=== PATIENT | male | born 1950 | race Caucasian/White ===

== ENCOUNTER 2020-12-18 12:52 | Emergency (ER) | payer MEDICARE, SELFPAY ==
--- NOTE | ~2020-12-18 | XR_ITS ---
EXAMINATION: XR CHEST CLINICAL INFORMATION: Shortness of breath COMPARISON: None TECHNIQUE: AP portable view of the chest was obtained. FINDINGS: There is some increased interstitial markings seen within the lower lungs bilaterally which may be related to chronic interstitial lung disease. There is also bibasilar scarring present. No confluent pneumonitis identified. No pneumothorax or pleural effusion. Heart normal size. No evidence of pulmonary edema. XR/XR chest 1V IMPRESSION: No confluent parenchymal disease. Findings consistent with mild chronic interstitial lung disease lung bases.
[2020-12-18 13:20] VITALS: BP 148/74; PULSE 105; RESP 18; TEMP 37.6; O2SAT 94; BMI 22.8
--- NOTE | 2020-12-18 13:39 | ED.URI ---
HPI - URI/Sore Throat General Chief Complaint: Upper Respiratory Symptoms Stated Complaint: COVID + SOB Time Seen by Provider: 12/18/20 13:38 Source: patient Mode of arrival: ambulatory Limitations: no limitations History of Present Illness HPI Narrative: 70 y/o male presents to the ER COVID positive per recs of his PCP. He reports since 12/08 he has had fatigue, dry cough, generalized weakness and decreased appetite. He was diagnosed with COVID on 12/11 and he had gotten his 1st Pfizer vaccine on 12/06. His is also home with COVID but she is feeing better. He reports every time he lays down his cough is terrible and keeps him up at night. He has minimal SOB, only with coughing fits and no chest pain. He had low grade fevers intermittently 99. His appetite is poor but he has no N/V/D or abdominal pain. MD elicited complaint: cough Onset (ago): day(s) (10) Consistency: constant Severity: moderate Able to tolerate fluids by mouth: Yes Exacerbating factors: supine positioning Relieving factors: OTC cold medicine Context: sick contacts Associated symptoms: fever, myalgias, headache and cough Treatments prior to arrival: none Related Data Previous Rx's Medication Instructions Recorded benzonatate 100 mg capsule 100 mg PO TID PRN #20 cap 12/18/20 (Carmencita Betts) Allergies Allergy/AdvReac Type Severity Reaction Status Date / Time No Known Allergies Allergy Unverified 12/12/19 17:43 Review of Systems Review of Systems: Constitutional: + Fever, No Chills ENT/Mouth: No sore throat, No Rhinorrhea, No Swallowing Difficulty Eyes: No Eye Pain, No Swelling, No Redness Cardiovascular: No Chest Pain, No SOB, No Orthopnea, No Edema Respiratory: + Cough, No Sputum, No Wheezing, No dyspnea Gastrointestinal: No Nausea, No Vomiting, No Diarrhea, No abdominal Pain Genitourinary: No Dysuria, No Urinary Frequency, No Hematuria Musculoskeletal: No joint pain, + Myalgias Skin: No Skin Lesions, No rash Neuro: + Weakness, No Numbness, No Dizziness, + Headache Heme/Lymph: No Bruising, No Lymphadenopathy Endocrine: No Polyuria, No Polydipsia PMFSH Social History Social History Advance Directives: Yes Advance Directives Information Provided: Yes Advance Directives on File: No Physical Exam Vital Signs: Vital Signs: Last Vital Signs Temp 99.6 F 12/18/20 13:20 Pulse 105 H 12/18/20 13:20 Resp 18 12/18/20 13:20 BP 148/74 H 12/18/20 13:20 Pulse Ox 94 12/18/20 13:20 Body Mass Index 22.8 Appearance: Alert. Oriented X3. No acute distress. Eyes: Pupils equal, round and reactive to light. ENT: Pharynx normal. Neck: Normal inspection. Neck supple. CVS: Tachycardic, low 100's, regular rhythm. Pulses normal. Respiratory: No respiratory distress. Breath sounds normal. Abdomen: Soft and nontender. +BS x4 Skin: Skin warm and dry. Normal skin color. Normal skin turgor. No rashes. Extremities: No lower extremity edema. No calf tenderness. Neuro: Oriented X 3. No motor deficit. No sensory deficit. Course Course Course Narrative: 70 y/o male with COVID-19 ten days into his symptoms. Biggest complaints is cough keeping him up at night and fatigue. He is not eating much but he has no abdominal pain, nausea or vomiting. He is slightly tachycardic 105 but has no SOB or chest pain. Doubt PE. He is not hypoxic or having any respiratory distress. He was ambulated with pulse oximetry and SpO2 remained 94-95% and no distress. CXR reviewed and is clear. He would like an antitussive rx but does not tolerate codiene due to severe constipation issues. Will send tessalon and have him get OTC cold/flu meds. He does not meet admission criteria at this time. Labs would not change management lead. He is stable for discharge home, supportive care and plan to f/u with his PCP next week. Critical Care Time Critical Care Time Critical Care Time: No Discharge Plan Discharge Clinical Impression: COVID-19 Patient Disposition: Home, Self-Care Instructions: Weakness (ED), COVID-19 (Coronavirus Disease 2019) (ED) Additional Instructions: Your chest x-ray and oxygen levels were normal. Rest. Drink plenty of fluids. Even if you are not hungry, do your best to get some protein and nutrition in you. Try Ensure shakes. Do not go out in public while you are sick. Take over the counter cold/flu medications as needed for your symptoms. Take Tylenol and/or Motrin as needed for fevers and body aches. Follow up with your doctor next week. If you shortness of breath worsens , if you develop difficulty breathing or any other concerning symptom come back to the ER for further evaluation. Prescriptions: New benzonatate [Tessalon Perles] 100 mg capsule 100 mg PO TID PRN (Reason: cough) Qty: 20 RF: 0 Interventions: ED Discharge Assessment Last Done: 12/18/20 14:34 Discharge Date/Time: 12/18/20 14:34
== END 2020-12-18 14:34 | disposition home or self-care (01) ==
PROVIDERS: Emergency Provider Emergency Medicine; PCP Internal Medicine
DX: U07.1 COVID-19 (principal); R05 Cough; R06.02 Shortness of breath; Z79.899 Other long term (current) drug therapy
CPT/HCPCS: 71045; 99283

== ENCOUNTER → 2021-03-18 08:56 | Outpatient (BNVA) | payer MEDICARE, SELFPAY | PROVIDERS: PCP Internal Medicine; Visit Provider Surgery | DX: L72.0 Epidermal cyst (principal) | CPT/HCPCS: 99202 ==

== ENCOUNTER 2021-06-09 12:16 | Outpatient (REF) | payer OTHER, MEDICARE, SELFPAY ==
[2021-06-09 12:21] VITALS: BP 122/77; PULSE 79; RESP 16; TEMP 36.9; O2SAT 98
[2021-06-09 12:30] VITALS: BMI 22.0
[2021-06-09 12:45] VITALS: BP 123/76; PULSE 72; RESP 16; O2SAT 98
--- NOTE | 2021-06-09 12:48 | W.PM.OPN ---
Operative Note Operative Note Date of Service: 06/09/21 Narrative: Preop diagnosis: Epidermal inclusion cyst, right anterior chest wall Postop diagnosis: Dermal inclusion cyst, right anterior chest wall Procedure: Excision of epidermal inclusion cyst under local anesthesia from the anterior chest wall Surgeon: Mark Gillespie MD The patient is a 70-year-old male here for removal of an epidermal inclusion cyst. He understood the technique of the procedure. He was aware of the risks, benefits, and alternatives. He was brought to the minor procedure room. He was placed supine. The area of the cyst was prepped and draped. Lidocaine 1% was used for local anesthesia. I made an incision in the skin overlying this epidermal inclusion cyst using blade 15. This was carried down through the full-thickness of the skin until was able to visualize the cyst capsule. I sharply dissected the cyst capsule off of the rest of the subcutaneous layer using Metzenbaum scissors until this was delivered and sent as a specimen. Diameter area of the cyst was about 4.5 cm. I irrigated the area of excision and closed the incision with full-thickness nylon 3-0 interrupted sutures. Dressings were applied. The procedure was then completed The patient tolerated procedure well. There were no complications noted. Estimated blood loss was about 10 cc . The patient was given wound care instructions and will be seen in the office for follow-up visit.
== END 2021-06-09 12:17 | disposition home or self-care (01) ==
LOC: HO.MS 12:16
PROVIDERS: PCP Internal Medicine; Visit Provider Surgery
PROC: (CPT 11406; principal; 2021-06-09 12:20)
DX: L72.0 Epidermal cyst (principal)
CPT/HCPCS: 11406; 88304

== ENCOUNTER → 2021-06-23 09:31 | Outpatient (BNVA) | payer OTHER, MEDICARE, SELFPAY | PROVIDERS: PCP Internal Medicine; Referring Provider Internal Medicine; Visit Provider Surgery | DX: L72.0 Epidermal cyst (principal) | CPT/HCPCS: 99212 ==

== ENCOUNTER 2021-12-22 13:47 | Outpatient (REF) | payer OTHER, MEDICARE, SELFPAY ==
--- NOTE | ~2021-12-22 | XR_ITS ---
EXAMINATION: XR CHEST CLINICAL INFORMATION: Syncope and collapse. COMPARISON: Previous chest x-ray November 2020. TECHNIQUE: 2 views of the chest were obtained. FINDINGS: The cardiac and mediastinal contours are stable. There is a 2 cm nodular density at the right lung base overlying the right anterior 5th rib questionable for pulmonary nodule. This may represent superimposition of bone and vascular structures. There is a more inferior 9 mm right base nodule adjacent to the right anterior 6th rib. The latter nodule may represent a nipple shadow. The lungs are otherwise clear. There is no pleural effusion or pneumothorax. There are degenerative changes of the spine. XR/XR chest 2V IMPRESSION: Nodular densities at the right lung base. Follow-up chest x-ray or chest CT recommended. Findings will be communicated by the [place] work flow assistant bookkeeper.
--- NOTE | 2021-12-22 13:54 | ECG_ITS ---
Test Reason : r55 Blood Pressure : / mmHG Vent. Rate : 064 BPM Atrial Rate : 064 BPM P-R Int : 160 ms QRS Dur : 094 ms QT Int : 390 ms P-R-T Axes : 074 061 072 degrees QTc Int : 402 ms Normal sinus rhythm Normal ECG No previous ECGs available Referred By: Joey Perez Electronically Signed By:JOEY LAM
== END 2021-12-22 13:48 | disposition home or self-care (01) ==
LOC: HO.XRAY 13:47
PROVIDERS: PCP Internal Medicine; Visit Provider Internal Medicine
DX: R55 Syncope and collapse (principal)
CPT/HCPCS: 71046; 93005

== ENCOUNTER 2024-06-04 10:24 | Outpatient (AMB) | payer OTHER, SELFPAY ==
[2024-06-04 10:24] VITALS: BP 118/70; PULSE 84; RESP 16; TEMP 36.6; O2SAT 99; BMI 22.2
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
--- OUTSIDE RECORDS SUMMARY | 2024-06-04 12:22 | XMS_ITS | Referral Summary ---
Author Organization [facility] Address [address] [place] [address] Care Team Providers Care Packing Supervisor Name Role Phone Patient, Has No Pcp Or Ref Primary Care Provider Unavailable Medications Hospital, Clinic, or Other Facility Administered Medication Ordered Dose Route Frequency Start Date End Date Status acetaminophen (TYLENOL) tablet 650 mg 650 mg oral Once 12/14/2020 Active diphenhydrAMINE (BENADRYL) capsule 25 mg 25 mg oral Once 12/14/2020 Active Social History Tobacco Use Types Packs/Day Years Used Date Smoking Tobacco: Never Assessed Sex and Gender Information Value Date Recorded Sex Assigned at Not on file Legal Sex Male 2:22 PM EDT Gender Identity Not on file Sexual Orientation Not on file Last Filed Vital Signs Vital Sign Reading Time Taken Comments Blood Pressure 105/63 12/14/2020 10:39 AM EDT Pulse 94 12/14/2020 10:39 AM EDT Temperature - - Respiratory Rate 20 12/14/2020 10:39 AM EDT Oxygen Saturation 97% 12/14/2020 10:39 AM EDT Inhaled Oxygen Concentration - - Weight 79.4 kg (175 lb) 12/14/2020 4:52 AM EDT Height - - Body Mass Index - - Plan of Treatment Not on file Care Teams Packing Supervisor Relationship Specialty Start Date End Date Patient, Has No Pcp Or Ref DO NOT EDIT THIS RECORD VIA PROVIDER ON THE FLY PCP - General Commodity Trader 12/11/20
--- OUTSIDE RECORDS SUMMARY | 2024-06-04 12:22 | XMS_ITS ---
Author Organization [facility] Address [address] [place] [address] Care Team Providers Care Fabric Coating Supervisor Name Role Phone Gladys, Kartik Primary Care Provider [phone] Amrita Esquivel [phone] Encounters Encounter Location Date Provider Diagnosis [address] [facility] [place] [address] 04/10/2024 Amrita Esquivel Plan Of Treatment Next Appt Details Provider Name:Louise Zavala , 07/19/2024 09:30:00 AM, [facility] [place], [facility] [place], [address], Progress Notes * Joey MENADOB:[birth year] (73 yo F)Acc No.[id number]:04/10/2024 Patient:?Joey MENA :1950???Age:73 Y???Sex:Female [address] [place], [address] * true * Date:? Generated for Printi melly/Mariettag/eTransmitting on:?06/04/2024 12:22 PM EDT
--- OUTSIDE RECORDS SUMMARY | 2024-06-04 12:22 | XMS_ITS | Patient Health Record ---
Author Organization [facility] [place] Address [address] [facility] [place] [address] Care Team Providers Care Silk Screen Painter Name Role Phone Kali Graham Primary Care Provider Amrita Esquivel [phone] Allergies No Known Allergies Reason For Referral No Information Social History Tobacco Use: Social History Observation Description Date Details (start date - stop date) Never Smoker NA - NA Tobacco Control (Standard) Question Answer Notes Tobacco use: Nonsmoker Additional Findings: Tobacco non-user Current no nsmoker AUDIT-C (Standard) Question Answer Notes Did you have a drink containing alcohol in the p ast year? No Points 0 Interpretation Negative Encounters Encounter Location Date Provider Diagnosis [facility] [address] [address] [facility]10[facility]20[facility] [address] [place] [address] 05/30/2024 Amrita Esquivel Plan Of Treatment Next Appt Details Provider Name:Louise Zavala , 07/19/2024 09:30:00 AM, [address] [place], [address], Insurance Providers Payer Name Payer Address Payer Phone Subscriber Number Group Number Insured Name Patient Relationship to Insured Coverage Start Date Coverage End Date Medicare National Govt [facility] [address] [place] [address] [id number] Joey Khan Self - patient is the insured [employer] [facility] [address] [place] [address] [id number] Joey Khan Self - patient is the insured Medical (General) History Medical History History ICD Code Broken bones covid-19 Chicken pox Joint implants/screws Measles Mumps Surgical History Surgery Date(Month/Year) elbow sx 03/31/24
--- OUTSIDE RECORDS SUMMARY | 2024-06-04 12:22 | XMS_ITS | Clinical Summary ---
Author Organization [facility] Address [address] [place] [address] Care Team Providers Care Lime Mixer Name Role Phone Patient, Has No Pcp [...] of Treatment Not on file Care Teams Lime Mixer Relationship Specialty Start Date End Date Patient, Has No Pcp Or Ref DO NOT EDIT THIS RECORD VIA PROVIDER ON THE FLY PCP - General Mains And Service Supervisor 12/11/20
--- OUTSIDE RECORDS SUMMARY | 2024-06-04 12:22 | XMS_ITS ---
Author Organization [facility] Address [address] [place] [address] Care Team Providers Care Coordinating Producer Name Role Phone Kali Graham Primary Care Provider Amrita Esquivel [phone] REASON FOR VISIT CX ORCHARD HAND appt 06/06 Encounters Encounter Location Date Provider Diagnosis [address] [address] 05/30/2024 Amrita Esquivel Plan Of Treatment Next Appt Details Provider Name:Louise Zavala , 07/19/2024 09:30:00 AM, [address] [place] [address], [place], [address], Progress Notes * RAJESHJoey WLEDONDOB:[birth year] (73 yo F)Acc No.[id number]:05/30/2024 Patient:?Joey MENA :1950???Age:73 Y???Sex:Female Address:[address] [place], [address] * true * Date:? Generated for Katherinei melly/Jhonatan/eTransmitting on:?06/04/2024 12:22 PM EDT
--- OUTSIDE RECORDS SUMMARY | 2024-06-04 12:22 | XMS_ITS | Clinical Summary ---
Author Organization [facility] Address [address] [place] [address] Care Team Providers Care Information Technology Officer Name Role Phone Unavailable Primary Care Provider Unavailabl e Social History Tobacco Use Types Packs/Day Years Used Date Smoking Tobacco: Never Assessed Sex and Gender Information Value Date Recorded Sex Assigned at Not on file Legal Sex Male 8:26 AM EDT Gender Identity Not on file Sexual Orientation Not on file Plan of Treatment Health Maintenance Due Date Last Done Comments Colorectal Cancer Screening: Annual FOBT 1998 Colorectal Cancer Screening: Colonoscopy 1998 Colorectal Cancer Screening: Sigmoidoscopy 1998 Pneumococcal Vaccine: 65+ Ye ars (1 of 1 - PCV) 2014 Influenza Vaccine (#1) 2023 Hepatitis B Vaccine Aged Out No longe r eligible based on patient's age to complete this topic Insurance MEDICARE [facility]
== END 2024-06-04 10:45 | disposition home or self-care (01) ==
LOC: HO.HMCSH 10:24
PROVIDERS: PCP Internal Medicine; Visit Provider Internal Medicine
DX: N40.0 Benign prostatic hyperplasia without lower urinary tract symptoms (principal); S42.402A Unspecified fracture of lower end of left humerus, initial encounter for closed fracture

== ENCOUNTER → 2024-06-04 10:24 | Outpatient (BNVA) | payer MEDICARE, SELFPAY | PROVIDERS: PCP Internal Medicine; Visit Provider Internal Medicine | DX: N40.0 Benign prostatic hyperplasia without lower urinary tract symptoms (principal); S42.402D Unspecified fracture of lower end of left humerus, subsequent encounter for fracture with routine healing | CPT/HCPCS: 99202 ==

== ENCOUNTER 2024-07-09 15:04 | Outpatient (REF) | payer MEDICARE, SELFPAY ==
--- OUTSIDE RECORDS SUMMARY | 2024-07-09 18:23 | XMS_ITS | Clinical Summary ---
Author Organization [facility] Address [address] [place] [address] Care Team Providers Care Mold Cleaner Name Role Phone Patient, Has No Pcp [...] of Treatment Not on file Care Teams Mold Cleaner Relationship Specialty Start Date End Date Patient, Has No Pcp Or Ref DO NOT EDIT THIS RECORD VIA PROVIDER ON THE FLY PCP - General Live In Companion 12/11/20
--- OUTSIDE RECORDS SUMMARY | 2024-07-09 18:23 | XMS_ITS | Referral Summary ---
Author Organization [facility] Address [address] [place] [address] Care Team Providers Care Information Consultant Name Role Phone Patient, Has No Pcp [...] of Treatment Not on file Care Teams Information Consultant Relationship Specialty Start Date End Date Patient, Has No Pcp Or Ref DO NOT EDIT THIS RECORD VIA PROVIDER ON THE FLY PCP - General Plate Painter 12/11/20
--- OUTSIDE RECORDS SUMMARY | 2024-07-09 18:23 | XMS_ITS | Clinical Summary ---
Author Organization [facility] Address [address] [place] [address] Care Team Providers Care Environmental Projects Advisor Name Role Phone Unavailable Primary Care Provider [...] Colorectal Cancer Screening: Sigmoidoscopy 1998 Pneumococcal Vaccine: 50+ Ye ars (1 of 1 - PCV) 06/24/1999 Influenza Vaccine (Season Ended) 2024 Hepatitis B Vaccine Aged Out No longe r eligible based on patient's age to complete this topic Insurance Medicare [facility]
== END 2024-07-09 15:05 | disposition home or self-care (01) ==
LOC: HO.SH 15:04
PROVIDERS: Visit Provider Internal Medicine
DX: Z01.118 Encounter for examination of ears and hearing with other abnormal findings (principal); H90.3 Sensorineural hearing loss, bilateral
CPT/HCPCS: 92557; 92567

== ENCOUNTER 2024-10-24 13:21 | Outpatient (AMB) | payer MEDICARE, SELFPAY ==
[2024-10-24 13:27] VITALS: BP 130/82; PULSE 74; RESP 14; TEMP 36.7; O2SAT 98; BMI 21.9
--- NOTE | 2024-10-24 13:27 | A.OFFPC_ITS ---
Vital Signs 10/24/24 13:27 Height 5 ft 8 in Weight 144 lb BMI 21.9 BP 130/82 Respiration 14 Pulse 74 Pulse Source Pulse Oximeter Temp 98.1 F Temp Source Temporal Artery Scan Pulse Oximetry (%) 98 Oxygen Delivery Method Room Air Intake Visit Reasons: Ear wax removal being fitted for hearing aids Commercial Credit Portfolio Manager Required: No Accompanied by: Self / Same As Patient Allergies No Known Allergies Allergy (Verified 10/24/24 14:40) Medication List - Last Reconciled 10/24/24 by Brenna Robles PA-C sildenafil 0 mg PO tamsulosin 0.4 mg PO DAILY Tobacco use date assessed: 10/24/24 Dental Screening Dental Screen Date: 06/04/24 HPI Ear wax removal being fitted for hearing aids HPI Details 74-year-old male presenting to the [facility] for ear wax removal. He reports that he went for an hearing exam and fell to his right ear and was told that he will need to repeat the hearing exam after the ear wax is removed from bilateral ear canals. He denies any other symptoms related to this. [facility] Medical History (Updated 10/24/24 @ 14:44 by Brenna Robles PA-C) Impacted cerumen of both ears Fracture of left elbow Epidermal inclusion cyst BPH (benign prostatic hyperplasia) Surgical History History of colonoscopy (~09/26/19) History of excision of epidermal inclusion cyst (~06/09/21) Hx of tonsillectomy Family History Mother Breast cancer Father Diabetes Social History Housing: House Alcohol intake: current Alcohol intake frequency: a few times a month Alcohol type: beer Patient Tobacco Use Status: Never used Tobacco Substance Use Type: Marijuana service: No Current occupational status: employed Cognitive needs: No Hearing needs: No Vision needs: Yes Questionnaire PHQ-9 Over the last 2 weeks, how often have you been bothered by any of the following problems? 1. Little interest or pleasure in doing things: not at all 2. Feeling down, depressed, or hopeless: not at all 3. Trouble falling or staying asleep, or sleeping too much: not at all 4. Feeling tired or having little energy: not at all 5. Poor appetite or overeating: not at all 6. Feeling bad about yourself - or that you are a failure or have let yourself or your family down: not at all 7. Trouble concentrating on things, such as reading the newspaper or watching television: not at all 8. Moving or speaking so slowly that other people could have noticed. Or the opposite - being so fidgety or restless that you have been moving around a lot more than usual: not at all 9. Thoughts that you would be better off or of hurting yourself in some way: not at all Total score: 0 Depression Screening Interpretation: Negative Depression Screening Done: Yes 53362 - PHQ-9 Billing: Yes Source: Developed by Drs. Joey Sandhu, Michelle Padilla, Kenneth Garland and colleagues, with an educational martina from [employer]. Thrive Questionnaire Date Thrive assessed: 06/04/24 I am a: Patient What is your living situation today?: I have a steady place to live Within the past 12 months, did the food you bought not last and you didn't have the money to get more?: Never true Within the past 12 months, did you worry whether your food would run out before you got money to buy more?: Never true Do you have trouble paying for medicines?: No Do you have trouble getting transportation to medical appointments?: No Do you have trouble paying your heating and electricity bill?: No Do you have trouble taking care of your child, family member or friend?: No Do you have trouble with day-to-day activities such as bathing, preparing meals, shopping, managing finances, etc.?: No Are you currently unemployed and looking for a job?: No Are you interested in more education?: No THRIVE Score: 0 AUDIT C Alcohol Use Questionnaire (AUDIT-C) 1. How often do you have a drink containing alcohol?: 2-3 times a week 2. How many drinks containing alcohol do you have on a typical day when you are drinking?: 1 or 2 3. How often do you have six or more drinks on one occasion?: Never Total Score: 3 Score Reviewed/Action Taken: No NICOLA-7 AMB Questionnaire NICOLA-7 Date NICOLA - 7 assessed: 06/04/24 Feeling nervous, anxious, or on edge: 0 = Not at all Not being able to stop or control worryin = Not at all Worrying too much about different things: 0 = Not at all Trouble relaxin = Not at all Being so restless that it is hard to sit still: 0 = Not at all Becoming easily annoyed or irritable: 0 = Not at all Feeling afraid as if something awful might happen: 0 = Not at all Total NICOLA-7 score (0-4 normal; 5-9 mild; 10-14 moderate; 15-21 severe): 0 Source: Developed by Drs. Joey Sandhu, Michelle Padilla, Kenneth Garland and colleagues, with an educational martina from [employer]. NICOLA-7 Assessment Billing NICOLA-7 Assessment Tool: NICOLA-7 Assessment 70947 Review of Systems Const All systems reviewed & are unremarkable except as noted in HPI and below Physical exam (Primary Care) Vital Signs: Last Vital Signs Temp 98.1 F 10/24/24 13:27 Pulse 74 10/24/24 13:27 Resp 14 10/24/24 13:27 BP 130/82 10/24/24 13:27 Pulse Ox 98 10/24/24 13:27 Oxygen Delivery Method Room Air 10/24/24 13:27 Care Plan Goal for BP management: <140/90 at Goal BMI result Body Mass Index 21.9 Normal BMI Tobacco/Smoking Status: Tobacco use Status Tobacco use date assessed 10/24/24 10/24/24 13:28 Patient Tobacco Use Status Never used Tobacco 10/24/24 13:28 PHQ-9: PHQ-9 Score PHQ-9: Total score 0 10/24/24 13:46 Depression Screening Interpretation: Negative Thrive Assessment: Date of Thrive Assessment Date Thrive assessed 06/04/24 10/24/24 13:28 Const Other: Appearance: Alert. Oriented X3. No acute distress. Head: Normal external exam. Normocephalic. Atraumatic. Eyes: Pupils are equal, round, and reactive to light. Extraocular movements intact. Conjunctiva and sclera normal. Eyelids normal. Ears: External auditory canal normal. Tympanic membranes normal. Bilateral ear canals with cerumen impaction. Throat: Pharynx normal. Uvula midline. Moist mucous membranes. Neck: Normal inspection. Neck supple. Full range of motion. Cardiovascular: Normal heart rate and rhythm. Respiratory: No respiratory distress. Painless inspiration. Back: Full range of motion noted. Skin: Skin warm and dry. Normal skin color. Normal skin turgor. No rashes/lesions/lacerations noted. Extremities: Extremities exhibit normal range of motion. Office Procedures Cerumen Removal From which ear canal was the cerumen removed: bilateral Removal: irrigation, otoscope w/curette and cerumen loop/spoon Notes: patient tolerated procedure well, no complications and ear canal clear [id number] Wax Removal by Spoon/Curette (We also use ear irrigation/lavage) Coding Level of Care Code Est Pt Level 4 (27482) Procedure Only Diagnoses Impacted cerumen of both ears H61.23 CPT Codes Office Procedure - CPT: 46139-Pmy Wax Removal by Spoon/Curette ([id number]) Additional Codes PHQ-9 - 81359 - PHQ-9 Billing: Yes ([id number]) NICOLA-7 Assessment Billing - NICOLA-7 Assessment Tool: NICOLA-7 Assessment 28367 ([id number]) Assessment & Plan Assessment & Plan (1) Impacted cerumen of both ears: Code(s): H61.23 - Impacted cerumen, bilateral Category: Medical Plan: Patient now status post cerumen impaction to bilateral ears. Patient tolerated procedure well. No complications. Improve hearing. Will instruct patient to go back for hearing screening. Plan Patient now status post cerumen impaction to bilateral ears. Patient tolerated procedure well. No complications. Improve hearing. Will instruct patient to go back for hearing screening. Patient Instructions: Patient now status post cerumen impaction to bilateral ears. Patient tolerated procedure well. No complications. Improve hearing. Will instruct patient to go back for hearing screening.
--- OUTSIDE RECORDS SUMMARY | 2024-10-24 13:36 | XMS_ITS | Clinical Summary ---
Author Organization [facility] Address [address] [place] [address] Care Team Providers Care Bisque Tile Burner Name Role Phone Patient, Has No Pcp [...] of Treatment Not on file Care Teams Bisque Tile Burner Relationship Specialty Start Date End Date Patient, Has No Pcp Or Ref DO NOT EDIT THIS RECORD VIA PROVIDER ON THE FLY PCP - General Avionic Technician 12/11/20
--- OUTSIDE RECORDS SUMMARY | 2024-10-24 13:36 | XMS_ITS | Clinical Summary ---
Author Organization [facility] Address [address] [place] [address] Care Team Providers Care Infrastructure Tech Name Role Phone Unavailable Primary Care Provider [...] of 1 - PCV) 06/24/1999 Influenza Vaccine (#1) 2024 Hepatitis B Vaccine Aged Out No longe r eligible based on patient's age to complete this topic Insurance Medicare [facility]
== END 2024-10-24 14:11 | disposition home or self-care (01) ==
LOC: HO.HMCSH 13:22
PROVIDERS: PCP Internal Medicine; Visit Provider Physician Assistant Medical
DX: H61.23 Impacted cerumen, bilateral (principal)

== ENCOUNTER → 2024-10-24 13:21 | Outpatient (BNVA) | payer MEDICARE, SELFPAY | PROVIDERS: PCP Internal Medicine; Visit Provider Physician Assistant Medical | DX: H61.23 Impacted cerumen, bilateral (principal) | CPT/HCPCS: 69210; 96127; 99212 ==

== ENCOUNTER 2025-03-25 15:48 | Outpatient (AMB) | payer MEDICARE, SELFPAY ==
[2025-03-25 15:50] VITALS: BP 125/67; PULSE 77; RESP 14; TEMP 36.6; O2SAT 99; BMI 22.3
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
--- OUTSIDE RECORDS SUMMARY | 2025-03-25 18:56 | XMS_ITS | Clinical Summary ---
Author Organization [address] [place] [address] [place] [phone] Phone Care Team Providers Care Staff Trainer Name Role Phone Kali Graham MD Primary Care Provider [phone] Allergies No known active allergies Medications acetaminophen (TYLENOL) 325 mg tablet Take 2 tablets (650 mg total) by mouth. 12/14/2020 Active diphenhydrAMINE (BENADRYL) 25 mg capsule Take 1 capsule (25 mg total) by mouth. 12/14/2020 Active sildenafiL (Viagra) 100 mg tablet Take by mouth. 10/11/2006 Active gabapentin (NEURONTIN) 300 mg capsule Take 1 capsule (300 mg total) by mouth. 09/19/2024 Active tamsulosin (FLOMAX) 0.4 mg 24 hr capsule 10/13/2024 Activ e Active Problems Problem Noted Date Diagnosed Date Anxiety disorder 10/15/2024 Erectile dysfunction 10/15/2024 Social History Tobacco Use Types Packs/Day Years Used Date Smoking Tobacco: Never Smokeless Tobacco: Never Tobacco Cessation:Counseling Given: Not Answered Alcohol Use Standard Drinks/Week Comments Never 0 (1 standard drink = 0.6 oz pur e alcohol) Sex and Gender Information Value Date Recorded Sex Assigned at Not on file Legal Sex Male 10:32 AM EDT Gender Identity Not on file Sexual Orientation Not on file Last Filed Vital Signs Vital Sign Reading Time Taken Comments Blood Pressure 119/75 10/18/2024 10:15 AM EDT Pulse 70 10/18/2024 10:15 AM EDT Temperature - - Respiratory Rate - - Oxygen Saturation - - Inhaled Oxygen Concentration - - Weight 63.7 kg (140 lb 6.4 oz) 10/18/2024 10:15 AM EDT Height 171.5 cm (5' 7.5 ) 10/18/2024 10:15 AM ED T Body Mass Index 21.67 10/18/2024 10:15 AM EDT Plan of Treatment Health Maintenance Due Date Last Done Comments Colorectal Cancer Screening: Colonoscopy 1949 DTaP,Tdap,and Td Vaccines (1 - Tdap) 1968 Pneumococcal Vaccine: 50+ Ye ars (1 of 1 - PCV) 06/24/1999 Zoster Vaccines (1 of 2) 06/24/1999 Depression Screening 03/27/2024 RSV Immunization Adult Patie nts (1 - 1-dose 75+ series) 2024 Cholesterol Screening (Lipid Panel) 09/30/2024 Falls Risk Assessment 09/30/2024 Hepatitis C Screening 09/30/2024 Medicare Annual Wellness Visit 09/30/2024 Social Influencers of Health Screening 09/30/2024 COVID-19 Vaccine (2 - 2024-2 6 season) 2024 12/06/2020 Influenza Vaccine (#1) 2024 HIB Vaccines Aged Out No longer eligi ble based on patient's age to complete this topic HPV Vaccines Aged Out No longer eligi ble based on patient's age to complete this topic Hepatitis A Vaccines Aged Out No long er eligible based on patient's age to complete this topic Hepatitis B Vaccines Aged Out No long er eligible based on patient's age to complete this topic IPV Vaccines Aged Out No longer eligi ble based on patient's age to complete this topic MMR Vaccines Aged Out No longer eligi ble based on patient's age to complete this topic Meningococcal ACWY Vaccine Aged Out N o longer eligible based on patient's age to complete this topic Meningococcal B Vaccine Aged Out No l onger eligible based on patient's age to complete this topic RSV Immunization Patients Un elena 20 months Aged Out No longer eligible b ased on patient's age to complete this topic Varicella Vaccines Aged Out No longer eligible based on patient's age to complete this topic Insurance [employer] - [place] MEDICARE ADVANTAGE Care Teams Staff Trainer Relationship Specialty Start Date End Date Kali Graham MD [address] [place] [id number] PCP - General Internal Medicine 09/30/24
--- OUTSIDE RECORDS SUMMARY | 2025-03-25 18:56 | XMS_ITS | Clinical Summary ---
Author Organization [facility] Address [address] [place] [address] Care Team Providers Care Mortician Supplies Sales Representative Name Role Phone Ref, Hasnopcp Primary Care Provider Unavailabl e Medications Hospital, Clinic, or Other Facility Administered [...] of Treatment Not on file Care Teams Mortician Supplies Sales Representative Relationship Specialty Start Date End Date Ref, Omaira DO NOT EDIT THIS RECORD VIA PROVIDER ON THE FLY PCP - General Barrel Coater 12/11/20
--- OUTSIDE RECORDS SUMMARY | 2025-03-25 18:56 | XMS_ITS | Clinical Summary ---
Author Organization [facility] Facility Address [address] [place] [address] Care Team Providers Care Ground Intelligence Officer Name Role Phone Unavailable Primary Care [...] age to complete this topic Insurance Medicare [facility]
== END 2025-03-25 16:06 | disposition home or self-care (01) ==
LOC: HO.HMCSH 15:48
PROVIDERS: PCP Physician Assistant Medical; Visit Provider Internal Medicine
DX: R05.9 Cough, unspecified (principal)

== ENCOUNTER → 2025-03-25 15:48 | Outpatient (BNVA) | payer MEDICARE, SELFPAY | PROVIDERS: PCP Physician Assistant Medical; Visit Provider Internal Medicine | DX: R05.9 Cough, unspecified (principal); Z13.31 Encounter for screening for depression; Z13.39 Encounter for screening examination for other mental health and behavioral disorders | CPT/HCPCS: 96127; 99212 ==